=== PATIENT | male | born 2000 | race Two or more races ===

== ENCOUNTER 2023-11-28 18:00 | Inpatient (IN) | payer MEDICAID, OTHER ==
[~2023-11-28] VITALS: Ht 182.9 cm; Wt 71.8 kg
[2023-11-28] MEDS: SODIUM CHLORIDE 0.9% 1,000 ML IV ONE (19:25)
[2023-11-28] MEDS: ONDANSETRON HCL 4 MG/2 ML VIAL IV ONE (19:26)
[2023-11-28 20:21] LABS: Eosinophils # (auto) 0 10 ^3/uL (0-0.8); Mean Corpuscular Hgb Conc. 35.7 g/dL (32.0-36.0)
[2023-11-28 20:22] LABS: Basophils # (auto) 0.2 10 ^3/uL (0-0.2); Basophils % (auto) 0.8 % (0.0-2.0); Hematocrit 49.6 % (41.0-53.0); Hemoglobin 17.7 g/dL (13.5-17.5); Lymphocytes # (auto) 0.8 10 ^3/uL (0.4-5.4); Lymphocytes % (auto) 3.4 % (10.0-50.0); Mean Corpuscular Hemoglobin 30.5 pg (28.0-32.0); Mean Corpuscular Volume 85.6 fL (80.0-100.0); Monocytes # (auto) 1.8 10 ^3/uL (0-1.3); Neutrophils # (auto) 19.8 10 ^3/uL (1.6-8.6); Neutrophils % (auto) 87.8 % (37.0-80.0); Nucleated Red Blood Cells % 0.1 %; Platelet Count (auto) 368 10^3/uL (140-450); Red Cell Distribution Width 13.1 % (11.8-14.3); White Blood Cell 22.5 10^3/uL (4.4-10.8)
[2023-11-28 20:38] LABS: Alanine Aminotransferase 23 U/L (7-40); Albumin 5.4 g/dL (3.2-4.8); Alkaline Phosphatase 70 U/L (46-116); Anion Gap 15 (5-15); Aspartate Aminotransferase 11 U/L (13-40); BUN/Creatinine Ratio 19.4 (10.0-20.0); Blood Urea Nitrogen 32 mg/dL (9-23); Calcium 9.8 mg/dL (8.7-10.4); Carbon Dioxide 22 mmol/L (20-30); Chloride 96 mmol/L (98-107); Glucose 134 mg/dL (74-106); Lipase 32 U/L (12-53); Magnesium 2.2 mg/dL (1.6-2.6); Potassium 2.9 mmol/L (3.5-5.1); Sodium 133 mmol/L (136-145)
[2023-11-28 20:39] LABS: Bilirubin, Total 1.1 mg/dL (0.2-1.0); Total Protein 8.6 g/dL (5.7-8.2)
[2023-11-28 20:54] LABS: Blood Alcohol < 3.0 mg/dL (<10)
[2023-11-28] MEDS: POTASSIUM CHL 20 Meq TABLET PO ONE (23:34)
[2023-11-28] MEDS: CIPROFLOXACIN 400MG/200ML 200 ML IV ONE (23:36)
[2023-11-28] MEDS: metroNIDAZOLE 500MG/100ML 100 ML IV ONE (23:37)
[2023-11-29] VITALS (9 sets, daily range): BP systolic 120–142; BP diastolic 70–82; PULSE 60–101; RESP 16–20; TEMP 98–98.6; O2SAT 96–99
[2023-11-29] MEDS: POTASSIUM CHL 20MEQ/100ML 100 ML IV ONE (00:01)
[2023-11-29] MEDS: ONDANSETRON HCL 4 MG/2 ML VIAL IV SCH (00:02)
[2023-11-29] MEDS: D5W/SOD CHL 0.45%/KCL 20MEQ 1,000 ML IV SCH (01:58)
[2023-11-29] MEDS: metroNIDAZOLE 500MG/100ML 100 ML IV SCH (05:53)
[2023-11-29] MEDS: PROCHLORPERAZINE EDISYLATE 5 MG/ML 2ML VIAL IV PRN (08:40)
[2023-11-29] MEDS: cefTRIAXone 1GM/50ML D5W 50 ML IV SCH (08:40)
[2023-11-29 09:50] LABS: Anion Gap 10 (5-15); Carbon Dioxide 25 mmol/L (20-30); Chloride 102 mmol/L (98-107); Potassium 2.9 mmol/L (3.5-5.1); Sodium 137 mmol/L (136-145)
[2023-11-29 09:51] LABS: Calcium 9.4 mg/dL (8.7-10.4)
[2023-11-29 09:56] LABS: BUN/Creatinine Ratio 16.8 (10.0-20.0); Blood Urea Nitrogen 16 mg/dL (9-23); Glucose 141 mg/dL (74-106)
[2023-11-29 11:38] LABS: COVID19 ANTIGEN SOFIA FIA NEGATIVE (NEGATIVE)
[2023-11-29] MEDS: POTASSIUM CHLORIDE 60 MEQ, LIDOCAINE 1% (LOCAL ANESTH.) 6 ML in SODIUM CHL 0.9% 500 ML IV ONE (15:04)
[2023-11-29 16:38] LABS: Chloride 103 mmol/L (98-107); Potassium 3.8 mmol/L (3.5-5.1); Sodium 137 mmol/L (136-145)
[2023-11-29 16:39] LABS: Anion Gap 6 (5-15); Carbon Dioxide 28 mmol/L (20-30)
[2023-11-29 16:40] LABS: Calcium 9.5 mg/dL (8.7-10.4)
[2023-11-29 16:44] LABS: BUN/Creatinine Ratio 13.5 (10.0-20.0); Blood Urea Nitrogen 13 mg/dL (9-23); Glucose 120 mg/dL (74-106)
[2023-11-29] MEDS: ONDANSETRON HCL 4 MG/2 ML VIAL IV PRN (20:44)
[2023-11-29 20:56] LABS: Urine Bacteria None Seen /hpf (None Seen)
[2023-11-29 21:33] LABS: Urine Blood Negative /uL (Negative); Urine Clarity Clear (Clear); Urine Color Yellow (Yellow); Urine Protein, UAD 1+ (Negative); Urine Specific Gravity 1.034 (1.001-1.035); Urine Urobilinogen 8 mg/dL (Negative); Urine WBC 2 /hpf (0 - 3)
[2023-11-29 21:40] LABS: Amphetamine Screen, Urine Neg (NEGATIVE); Barbiturate Scree,Urine Neg (NEGATIVE); Benzodiazephine Screen, Urine Neg (NEGATIVE); Cocaine Screen, Urine Neg (NEGATIVE)
[2023-11-29 21:41] LABS: Cannabinoid Screen, Urine Pos (NEGATIVE); Opiate Scree,Urine Neg (NEGATIVE); Phencyclidine Screen, Urine Neg (NEGATIVE)
[2023-11-30] VITALS (9 sets, daily range): BP systolic 113–148; BP diastolic 71–91; PULSE 62–94; RESP 17–20; TEMP 97.6–98.7; O2SAT 97–100
[2023-11-30] MEDS: ACETAMINOPHEN 325 MG TAB PO PRN (08:29)
[2023-11-30] MEDS: LORazepam 2MG/ML-1ML VIAL IV PRN (08:35)
[2023-12-01 01:00] VITALS: BP 125/91; PULSE 75; RESP 19; TEMP 99.5; O2SAT 97
[2023-12-01 03:10] VITALS: BP 137/78; PULSE 81; RESP 19; TEMP 98.1; O2SAT 99
[2023-12-01 05:00] VITALS: BP 139/93; PULSE 99; RESP 19; TEMP 99.5; O2SAT 100
[2023-12-01 08:00] VITALS: PULSE 83; RESP 16; O2SAT 98
[2023-12-01 09:50] VITALS: BP_SYST 131; BP_SYST 198; BP_DIAS 78; BP_DIAS 80; PULSE 18; PULSE 83; RESP 16; RESP 18; TEMP 98.1; TEMP 99.1; O2SAT 94
[2023-12-01] MEDS: PANTOPRAZOLE 40 MG TAB PO ONE (11:05)
[2023-12-01] MEDS ORDERED: METR-344 PO (11:17)
[2023-12-01 12:16] VITALS: BP 131/78; PULSE 83; RESP 16; TEMP 36.7; O2SAT 98
[2023-12-01] MEDS ORDERED: FOLIC ACID 1 MG, MAGNESIUM SULF SDV 50% 8 MEQ, MULTIPLE VITAMIN 10 ML, THIAMINE INJ 100... INJ SCH (18:00)
[2023-12-02] MEDS ORDERED: PANTOPRAZOLE 40 MG TAB PO SCH (06:00)
== END 2023-12-01 13:32 | disposition home or self-care (01) | DRG 249 ==
LOC: ER 18:00 → OVERFLOW 23:22 → WEST WING 23:22
PROVIDERS: ADMIT Nurse Practitioner; ATTEND Internal Medicine
DX: K52.9 Noninfective gastroenteritis and colitis, unspecified (principal); N17.0 Acute kidney failure with tubular necrosis; K29.20 Alcoholic gastritis without bleeding; E87.6 Hypokalemia; F10.10 Alcohol abuse, uncomplicated; Y90.9 Presence of alcohol in blood, level not specified; Z20.822 Contact with and (suspected) exposure to COVID-19
CPT/HCPCS: 36415; 74176; 80048; 80053; 80307; 80320; 81001; 82270; 83605; 83690; 83735; 84484; 85025; 85048; 87426; 93005; G0378; J2001; J2405; J3480; J3490